=== PATIENT | female | born 1990 | race Two or more races ===

== ENCOUNTER 2019-07-18 02:23 | Emergency (ER) | payer SELFPAY ==
[~2019-07-18] VITALS: Ht 175.3 cm; Wt 65.8 kg
--- NOTE | 2019-07-18 02:39 | NUR ---
ED Nurse Note: Pt c/o 9/10 pain on right side of head since last night, pt is currently vomitting, VSS. PT reports she gave via 2 weeks prior. ERMD at bedside
[2019-07-18 02:40] VITALS: BP 134/90
[2019-07-18] MEDS ORDERED: Ketorolac 30mg Inj IV ONE (03:00)
[2019-07-18] MEDS ORDERED: IBUPROFEN600 MG ORAL (03:53)
[2019-07-18 04:00] VITALS: BP 134/90
--- NOTE | 2019-07-18 04:00 | NUR ---
ER DISCHARGE NOTE: Patient is cleared to be discharged per ERMD, pt is aox4, on room air, with stable vital signs. pt was given dc and prescription instructions, pt was able to verbalize understanding, pt id band and iv site removed without complications. pt is able to ambulate with steady gait. pt took all belongings.
--- NOTE | 2019-07-18 04:18 | Emergency Room Report ---
History of Present Illness General Chief Complaint: Headache Source: Patient Present Illness HPI 28-year-old female presents ED for evaluation. Brought in by EMS from home. Complaining of a headache for the last 2 days. Frontal, throbbing, 8 out of 10 , nonradiating. Denies photophobia or blurry vision. Denies neck stiffness. Denies fevers or chills. States that she took Aleve and Tylenol without relief. Patient had a baby 2 weeks ago via . States she had a similar headache with her last . believes it was relieved with tramadol. No other aggravating relieving factors. Denies any other associated symptoms Allergies: Coded Allergies: ACETAMINOPHEN (Verified Allergy, Unknown, 07/18/19) HYDROCODONE (Verified Allergy, Unknown, 07/18/19) Patient History Past Medical History: none Past Surgical History: none Pertinent Family History: none Social History: Denies: smoking, alcohol use, drug use Now: No Immunizations: UTD Reviewed Nursing Documentation: PMH: Agreed; PSxH: Agreed Nursing Documentation-PMH Past Medical History: No Stated History Review of Systems All Other Systems: negative except mentioned in HPI Physical Exam Vital Signs Date Time Temp Pulse Resp B/P (MAP) Pulse Ox O2 Delivery O2 Flow Rate FiO2 07/18/19 02:25 99.0 98 22 134/90 (105) 100 Room Air Sp02 EP Interpretation: reviewed, normal General Appearance: no apparent distress, alert, GCS 15, non-toxic Head: normocephalic, atraumatic Eyes: bilateral eye normal inspection, bilateral eye PERRL, bilateral eye EOMI , bilateral eye visual acuity ENT: hearing grossly normal, normal pharynx, no angioedema, normal voice Neck: full range of motion, supple, no meningismus, supple/symm/no masses Respiratory: chest non-tender, lungs clear, normal breath sounds, speaking full sentences Cardiovascular #1: regular rate, rhythm, no edema Cardiovascular #2: 2+ carotid (R), 2+ carotid (L), 2+ radial (R), 2+ radial (L) , 2+ dorsalis pedis (R), 2+ dorsalis pedis (L) Gastrointestinal: normal bowel sounds, non tender, soft, non-distended, no guarding, no rebound Rectal: deferred Genitourinary: normal inspection, no CVA tenderness Musculoskeletal: back normal, normal range of motion, gait/station normal, non- tender Neurologic: alert, motor strength/tone normal, lace finisher III-XII nml as tested, oriented x3, sensory intact, responsive, speech normal Psychiatric: judgement/insight normal, memory normal, mood/affect normal, no suicidal/homicidal ideation Reflexes: 3+ bicep (R), 3+ bicep (L), 3+ tricep (R), 3+ tricep (L), 3+ knee (R) , 3+ knee (L) Skin: no rash Lymphatic: no adenopathy Medical Decision Making Diagnostic Impression: Primary Impression: headache ER Course Hospital Course 28 yo F presents with headache. 2 weeks Differential diagnoses include: tension headache, migraine, dehydration Clinical course Patient placed on stretcher. After initial history and physical I ordered toradol, zofran, IVFs. Upon reassessment patient states pain has improved. Patient feels better wishes to go home. No focal neurological deficits. No nuchal rigidity. Will discharge to home. 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 Patient states she has some breast milk in reserve. i. I feel this is a highly complex case requiring extensive working including EKG/Rhythm strip, Xray/CT/US, Blood/urine lab work, repeat exams while in ED, and administration of strong opiates/narcotics for pain control, admission to hospital or close patient follow up. Diagnosis - headache stable and discharged to home. f/up with PMD/OBGYN. return to ED if symptoms recur/worsen. Last Vital Signs Date Time Temp Pulse Resp B/P (MAP) Pulse Ox O2 Delivery O2 Flow Rate FiO2 07/18/19 04:00 99.0 22 134/90 100 Room Air 07/18/19 02:25 98 Status: improved Disposition: HOME, SELF-CARE Condition: Stable Scripts Ibuprofen* (MOTRIN*) 600 Mg Tablet 600 MG ORAL Q8H PRN for For Pain, #30 TAB 0 Refills Prov: Raheem Hauser MD 07/18/19 Referrals: NON PHYSICIAN (PCP) [facility] Patient Instructions: General Headache Without Cause, [id number] Raheem Hauser MD Jul 18, 2019 04:18
== END 2019-07-18 04:45 | disposition home or self-care (01) ==
LOC: EDBD 02:23 → EMR 02:42
DX: R51 Headache (principal); Z88.6 Allergy status to analgesic agent
CPT/HCPCS: 96361; 96374; 96375; 99284; J1885; J2405; J7030

== ENCOUNTER 2019-07-20 01:42 | Emergency (ER) | payer MEDICAID, OTHER ==
[~2019-07-20] VITALS: Ht 170.2 cm; Wt 97.5 kg
[~2019-07-20 01:42] MED LIST: IBUPROFEN600 MG ORAL
--- NOTE | 2019-07-20 02:04 | Emergency Room Report ---
History of Present Illness General Chief Complaint: Headache Source: Patient Present Illness HPI Patient is a 28-year-old female presents after increased headache. She reports having worsening headache over the past 2 to 3 days. She had previous similar symptoms after prior delivery. She denies having an epidural. She not currently breast-feeding. She denies any vomiting or diarrhea. She had delivery approximately 3 weeks ago. Allergies: Coded Allergies: ACETAMINOPHEN (Verified Allergy, Unknown, 07/18/19) HYDROCODONE (Verified Allergy, Unknown, 07/18/19) Uncoded Allergies: VICODEN (Allergy, Unknown, 07/20/19) Patient History Past Medical History: see triage record Reviewed Nursing Documentation: PMH: Agreed; PSxH: Agreed Nursing Documentation-PMH Past Medical History: No Stated History Review of Systems All Other Systems: negative except mentioned in HPI Physical Exam Vital Signs Date Time Temp Pulse Resp B/P (MAP) Pulse Ox O2 Delivery O2 Flow Rate FiO2 07/20/19 01:56 97.0 72 18 138/68 (91) 98 Room Air Sp02 EP Interpretation: reviewed, normal General Appearance: normal inspection, well appearing, no apparent distress, alert, GCS 15 Head: atraumatic ENT: normal ENT inspection, hearing grossly normal, normal voice Neck: normal inspection, full range of motion, supple, no bony tend Respiratory: normal inspection, lungs clear, normal breath sounds, no respiratory distress, no retraction, no wheezing Cardiovascular #1: regular rate, rhythm, no edema Gastrointestinal: normal inspection, normal bowel sounds, non tender, soft, no guarding, no hernia Genitourinary: no CVA tenderness Musculoskeletal: normal inspection, back normal, normal range of motion Neurologic: alert, motor strength/tone normal, territory business manager III-XII nml as tested, responsive, speech normal, normal inspection Psychiatric: normal inspection, judgement/insight normal, mood/affect normal Medical Decision Making Diagnostic Impression: Primary Impression: headache Additional Impression: Urinary tract infection ER Course Patient presented for headache. Differential diagnosis include was not limited to hypertensive crisis, preeclampsia, electrolyte abnormality, anemia among others. Because of complexity of patient's case laboratory tests and imaging studies were ordered. Patient was noted to have recent ER visit for similar symptoms. She was noted to have some continued headache. Patient is given medication for symptomatic treatment as well as IV fluids. She was given IV magnesium. Patient initially had some increased lower extremity reflexes. Patient does not appear to have meningismus. She was given IV antibiotics for UTI. She states she is not currently. Patient was advised to follow up for recheck with her primary care physician. She is to return if worse. Labs Test 07/20/19 02:20 07/20/19 03:20 White Blood Count 9.0 K/UL (4.8-10.8) Red Blood Count 5.69 M/UL (4.20-5.40) Hemoglobin 14.8 G/DL (12.0-16.0) Hematocrit 46.2 % (37.0-47.0) Mean Corpuscular Volume 81 FL (80-99) Mean Corpuscular Hemoglobin 26.1 PG (27.0-31.0) Mean Corpuscular Hemoglobin Concent 32.1 G/DL (32.0-36.0) Red Cell Distribution Width 13.0 % (11.6-14.8) Platelet Count 360 K/UL (150-450) Mean Platelet Volume 7.8 FL (6.5-10.1) Neutrophils (%) (Auto) 66.8 % (45.0-75.0) Lymphocytes (%) (Auto) 24.3 % (20.0-45.0) Monocytes (%) (Auto) 5.3 % (1.0-10.0) Eosinophils (%) (Auto) 2.4 % (0.0-3.0) Basophils (%) (Auto) 1.1 % (0.0-2.0) Sodium Level 139 MMOL/L (136-145) Potassium Level 3.6 MMOL/L (3.5-5.1) Chloride Level 104 MMOL/L (98-107) Carbon Dioxide Level 24 MMOL/L (21-32) Anion Gap 11 mmol/L (5-15) Blood Urea Nitrogen 7 mg/dL (7-18) Creatinine 0.6 MG/DL (0.55-1.30) Estimat Glomerular Filtration Rate > 60 mL/min (>60) Glucose Level 164 MG/DL (74-106) Calcium Level 9.0 MG/DL (8.5-10.1) Total Bilirubin 0.3 MG/DL (0.2-1.0) Aspartate Amino Transf (AST/SGOT) 19 U/L (15-37) Alanine Aminotransferase (ALT/SGPT) 33 U/L (12-78) Alkaline Phosphatase 120 U/L (46-116) Total Protein 7.9 G/DL (6.4-8.2) Albumin 3.4 G/DL (3.4-5.0) Globulin 4.5 g/dL Albumin/Globulin Ratio 0.8 (1.0-2.7) Thyroid Stimulating Hormone (TSH) 3.177 uiU/mL (0.358-3.740) Urine Color Pale yellow Urine Appearance Cloudy Urine pH 8 (4.5-8.0) Urine Specific [place] 1.015 (1.005-1.035) Urine Protein 1+ (NEGATIVE) Urine Glucose (UA) Negative (NEGATIVE) Urine Ketones 1+ (NEGATIVE) Urine Blood 5+ (NEGATIVE) Urine Nitrite Negative (NEGATIVE) Urine Bilirubin Negative (NEGATIVE) Urine Urobilinogen Normal MG/DL (0.0-1.0) Urine Leukocyte Esterase 2+ (NEGATIVE) Urine RBC Tntc /HPF (0 - 2) Urine WBC 30-40 /HPF (0 - 2) Urine Squamous Epithelial Cells Few /LPF (NONE/OCC) Urine Bacteria Moderate /HPF (NONE) Last Vital Signs Date Time Temp Pulse Resp B/P (MAP) Pulse Ox O2 Delivery O2 Flow Rate FiO2 07/20/19 01:56 97.0 72 18 138/68 (91) 98 Room Air Status: improved Disposition: HOME, SELF-CARE Condition: Stable Scripts Acetamin/Butalbital/Caffeine* (FIORICET*) 1 Ea Tab 1 TAB ORAL Q6H, #10 TAB 0 Refills Prov: Trevor Hickman MD 07/20/19 Cephalexin* (KEFLEX*) 500 Mg Capsule 500 MG ORAL EVERY 6 HOURS, #28 CAP Prov: Trevor Hickman MD 07/20/19 Trevor Hickman MD Jul 20, 2019 02:04
[2019-07-20] MEDS ORDERED: DiphenhydrAMINE 50mg/ml Inj IVP ONE (02:15)
[2019-07-20] MEDS ORDERED: Metoclopramide 10mg/2ml Inj IVP ONE (02:15)
[2019-07-20 02:24] VITALS: BP 138/68
--- NOTE | 2019-07-20 02:24 | NUR ---
ER Nurse Note: Pt lars in by wheelchair c/o 05/18 headache since 07/17. Per pt, pt stated she was in ED for the same s/s. Pt stated she did has not changed her daily activity of life but still has the pain. Pt also states she has been nauseous for 3 days as well. and ERMD at pt side; will continue to [facility].
[2019-07-20 02:34] LABS: BASOPHILS % (AUTO) 1.1 % (0.0-2.0); EOSINOPHILS % (AUTO) 2.4 % (0.0-3.0); HEMATOCRIT 46.2 % (37.0-47.0); HEMOGLOBIN 14.8 G/DL (12.0-16.0); LYMPHOCYTES % (AUTO) 24.3 % (20.0-45.0); MEAN CORPUSCULAR VOLUME 81 FL (80-99); MONOCYTES % (AUTO) 5.3 % (1.0-10.0); NEUTROPHILS % (AUTO) 66.8 % (45.0-75.0); PLATELET COUNT 360 K/UL (150-450); RED BLOOD COUNT 5.69 M/UL (4.20-5.40)
[2019-07-20 02:45] LABS: ANION GAP 11 mmol/L (5-15); BLOOD UREA NITROGEN 7 mg/dL (7-18); CARBON DIOXIDE 24 MMOL/L (21-32); CHLORIDE 104 MMOL/L (98-107); CREATININE 0.6 MG/DL (0.55-1.30); POTASSIUM 3.6 MMOL/L (3.5-5.1); SODIUM 139 MMOL/L (136-145)
--- NOTE | 2019-07-20 02:55 | NUR ---
ER Nurse Note: All orders completed per ERMD orders. Pt stable, VSS, no signs of distress. Water given. All safety measures met; will continue to [facility].
[2019-07-20 02:58] LABS: ALANINE AMINOTRANSFERASE 33 U/L (12-78); ALBUMIN 3.4 G/DL (3.4-5.0); ALBUMIN/GLOBULIN RATIO 0.8 (1.0-2.7); ALKALINE PHOSPHATASE 120 U/L (46-116); ASPARTATE AMINO TRANSFERASE 19 U/L (15-37); BILIRUBIN,TOTAL 0.3 MG/DL (0.2-1.0)
[2019-07-20 03:29] LABS: BILIRUBIN, URINE NEGATIVE (NEGATIVE); COLOR,URINE PALE YELLOW; GLUCOSE, URINE (UA) NEGATIVE (NEGATIVE); KETONES,URINE 1+ (NEGATIVE); LEUKOCYTE ESTERASE ,URINE 2+ (NEGATIVE); NITRITE,URINE NEGATIVE (NEGATIVE); PH,URINE 8 (4.5-8.0); PROTEIN,URINE 1+ (NEGATIVE); UROBILINOGEN,URINE NORMAL MG/DL (0.0-1.0)
[2019-07-20 03:52] LABS: APPEARANCE,URINE CLOUDY
[2019-07-20 03:56] VITALS: BP 134/74
[2019-07-20] MEDS ORDERED: cefTRIAXone 1 GM in NS 55 ML IVPB ONE (04:00)
--- NOTE | 2019-07-20 04:01 | NUR ---
ER Nurse Note: Pt asleep but easily arousable, VSS, RA, no signs of distress. Pt stated headache is "getting better" and stated it 5/10. Pt received 2 bags of Mg IV. All safety measures met; will conitnue to juan r.
[2019-07-20] MEDS ORDERED: CEPHALEXIN500 MG ORAL (04:22)
[2019-07-20] MEDS ORDERED: FIORICET1 EA ORAL (04:27)
[2019-07-20 04:50] VITALS: BP 134/74
--- NOTE | 2019-07-20 04:50 | NUR ---
ER Nurse Note: Pt seen, treated, cleared to be discharged per ERMD. Discharge instructions given with repeat verbalization by pt. Encouraged pt follow up with primary care doctor within one week. Pt is aox4, on room air, with stable vital signs, no signs of distress. ID band and IV removed; site clean and bandaged. Pt has wheelchair; took all belongings.
--- NOTE | 2019-07-20 10:57 | Diagnostic Imaging Report ---
Indication: Shortness of breath Technique: XRAY Chest 1v Comparison: None Findings: Limited exam with low lung volumes. Heart appears enlarged and the pulmonary vascularity appears mildly prominent. These findings may be exaggerated by low lung volumes. Possibility of cardiomegaly and mild pulmonary vascular congestion not excluded. Correlate clinically. No definite focal airspace consolidation, pleural effusion or pneumothorax. No acute osseous abnormality. Impression: Limited exam with low lung volumes. Apparent mild cardiomegaly and mild pulmonary vascular prominence may potentially be artifactual and related to low lung volumes. Correlate with clinical findings to assess for mild congestive changes.
== END 2019-07-20 04:50 | disposition home or self-care (01) ==
LOC: EMR 02:10
DX: R51 Headache (principal); Z88.6 Allergy status to analgesic agent; Z88.5 Allergy status to narcotic agent
CPT/HCPCS: 36415; 71045; 80053; 81003; 84443; 85025; 87086; 87181; 96365; 96366; 96368; 96375; J0696; J1200; J2765; J7040; Z7502; 99284

== ENCOUNTER 2019-07-20 12:44 | Emergency (ER) | payer MEDICAID, OTHER ==
[~2019-07-20] VITALS: Ht 167.6 cm; Wt 95.3 kg
[~2019-07-20 12:44] MED LIST changes: +CEPHALEXIN500 MG ORAL; +FIORICET1 EA ORAL
[2019-07-20 12:45] VITALS: BP 140/86
--- NOTE | 2019-07-20 12:45 | NUR ---
ED Nurse Note: Patient brought in by RA from home c/o severe headache. Pt is and her last delivery was on 06/30/19. Denies blurring of vision or fever. No SOB. Breathing even and unlabored. VSS. Family member at bedside.
--- NOTE | 2019-07-20 13:35 | NUR ---
ED Nurse Note: ERPA at bedside.
--- NOTE | 2019-07-20 13:35 | Emergency Room Report ---
History of Present Illness General Chief Complaint: Headache Source: Patient (Aminata Garza) Present Illness HPI 28 YO Female w. return of 03/18 in severity TOUSSAINT. PT. seen here in ED this am and d /c with rx for Fioricet. PT. had onset of TOUSSAINT on 07/18 ( 2 days ago) and was evaluated here in the ED then as well. PT. denies dizziness, N/V, Fevers or chills. She denies neck pain/stiffness. Pt. denies weakness, paresthesias or back pain. Denies loss of gross motor movements, slurred speech, visual changes or auditory changes. Patient reports status post after 3 weeks ago at [facility]. Patient reports that she has been and stopped after receiving pain medication here in the ED at first visit. Pt. reports one previous episode of TOUSSAINT from the child before this most recent . Pt. reports this TOUSSAINT is different in character. She describes right sided throbbing "stabbing" sharp pain. Pt. reports pain so severe she called 911. PT. denies photophobia. States she has only been taking Tylenol and Motrin at home with no relief. PT. states she has yet to last picker Rx from previous ED visit and states "she was too sick to go pick it up". NO significant PMHx. no significant Familial Hx. No CP, SOB, cough, or recent illness. Denies sudden onset, reports progressive quickly after getting into an argument at home. (Aminata Garza) Allergies: Coded Allergies: ACETAMINOPHEN (Verified Allergy, Unknown, 07/18/19) HYDROCODONE (Verified Allergy, Unknown, 07/18/19) Uncoded Allergies: VICODEN (Allergy, Unknown, 07/20/19) Patient History Past Medical History: see triage record Past Surgical History: none Pertinent Family History: none Now: No Reviewed Nursing Documentation: PMH: Agreed; PSxH: Agreed (Aminata Garza) Nursing Documentation-PMH Past Medical History: No History, Except For Hx Cardiac Problems: No - AND JUSTATIONAL DM (Aminata Garza) Review of Systems All Other Systems: negative except mentioned in HPI (Aminata Garza) Physical Exam Vital Signs Date Time Temp Pulse Resp B/P (MAP) Pulse Ox O2 Delivery O2 Flow Rate FiO2 07/20/19 12:31 98.1 99 16 140/86 (104) 99 Room Air Sp02 EP Interpretation: reviewed, normal General Appearance: no apparent distress, alert, GCS 15, non-toxic, lethargic Head: normocephalic, atraumatic Eyes: bilateral eye normal inspection, bilateral eye PERRL, bilateral eye EOMI , bilateral eye other - no photophobia ENT: hearing grossly normal, normal voice Neck: full range of motion, no meningismus, no bony tend Respiratory: lungs clear, normal breath sounds, speaking full sentences Cardiovascular #1: regular rate, rhythm Gastrointestinal: non tender, soft Genitourinary: no CVA tenderness Musculoskeletal: back normal, normal range of motion, gait/station normal - pt. requests assistance due to TOUSSAINT pain being too distracting when walking. Pt. visualized to be weight bearing and normal stride., non-tender Neurologic: alert, motor strength/tone normal, DTRs symmetric, oriented x3, sensory intact, responsive, speech normal Psychiatric: judgement/insight normal, memory normal, other - Pt. with severely flattened affect. Does not provide much detail to questions or regarding symptoms. Often referring to family members to answer for her. Reflexes: 2+ tricep (R) - brachioradialis, 2+ tricep (L) - brachioradialis, 2+ knee (R), 2+ knee (L), 2+ ankle (R), 2+ ankle (L) Skin: no rash, normal color (Aminata Garza) Medical Decision Making PA Attestation Dr. Wisdom Is my supervising Physician whom patient management has been discussed with. (Aminata Gazra) PA Attestation Patient was seen and evaluated by myself as well I do agree with the exam and work-up Patient had a third visit to the ER by 911 Patient reports having sharp shooting pain in the right side of her head Denies any visual changes denies any posterior neck pain patient describes the headache as a migraine And reports that she had similar episode last time after her Patient did have a and did have epidural anesthesia Denies any leg pain or weakness denies any saddle paresthesia Denies any back pain Denies any fevers or chills Patient's MRI is abnormal Does not show any obvious intracranial pathology however there are some scattered findings with differential is concerning and possible but not limited to demyelinating disease (Artemio Lombardi DO) Diagnostic Impression: Primary Impression: Headache Qualified Codes: R51 - Headache Additional Impressions: UTI (urinary tract infection) Qualified Codes: N30.01 - Acute cystitis with hematuria Abnormal finding on imaging ER Course 28 YO Female w. return of 03/18 in severity TOUSSAINT. PT. seen here in ED this am and d /c with rx for Fioricet. PT. had onset of TOUSSAINT on 07/18 ( 2 days ago) and was evaluated here in the ED then as well. PT. denies dizziness, N/V, Fevers or chills. She denies neck pain/stiffness. Pt. denies weakness, paresthesias or back pain. Denies loss of gross motor movements, slurred speech, visual changes or auditory changes. Patient reports status post after 3 weeks ago at [facility]. Patient reports that she has been and stopped after receiving pain medication here in the ED at first visit. Pt. reports one previous episode of TOUSSAINT from the child before this most recent . Pt. reports this TOUSSAINT is different in character. She describes right sided throbbing "stabbing" sharp pain. Pt. reports pain so severe she called 911. PT. denies photophobia. States she has only been taking Tylenol and Motrin at home with no relief. PT. states she has yet to last picker Rx from previous ED visit and states "she was too sick to go pick it up". NO significant PMHx. no significant Familial Hx. No CP, SOB, cough, or recent illness. Denies sudden onset, reports progressive quickly after getting into an argument at home. . Ddx considered but are not limited to migraine, SAH, Pseudomotor Cerebri, Mass lesion, Cluster TOUSSAINT, Tension TOUSSAINT, Post lumbar puncture TOUSSAINT, meningitis, UTI. Vital signs: are WNL, pt. is afebrile H&PE are most consistent with persistent recurring headache without focal neurological deficits, no meningeal signs, no trauma or fall. This pt. is highly complex and requires laboratory testing, IV interventions and brain imaging. ORDERS: -CBC: WNL -CMP: NWL - UA: mild infection noted, improved from UA results obtained this am. - MRI Brain: "Scattered nonspecific foci of patrizia-ventricular and subcortical T2 signal hyperintensity. Considerations include, but not limited to, chronic ischemic microvascular changes or demyelinating disease such as multiple sclerosis. Neurology follow-up recommended." Per official radiology report- Please see report for specific details. ED INTERVENTIONS: -1 Liter NS Bolus - Pt. Declines Imitrex -IM Toradol -Pt. offered Fioricet PTD, She also is declining. -I do not identify an emergent condition at this time. With current presentation , pt. is stable for close outpatient follow up and conservative treatment. D/ w pt. to return promptly to ED with worsening or new symptoms.- Pt. verbalizes' understanding and agreement with proposed treatment plan. D/w pt. abnormal MRI findings and required Neurology follow up. Pt. is given a printed copy of her MRI results. DISCHARGE: At this time pt. is stable for d/c to home. Will provide printed patient care instructions, and any necessary prescriptions. Care plan and follow up instructions have been discussed with the patient prior to discharge. Labs Test 07/20/19 13:59 07/20/19 14:14 White Blood Count 9.5 K/UL (4.8-10.8) Red Blood Count 5.78 M/UL (4.20-5.40) Hemoglobin 15.2 G/DL (12.0-16.0) Hematocrit 47.8 % (37.0-47.0) Mean Corpuscular Volume 83 FL (80-99) Mean Corpuscular Hemoglobin 26.2 PG (27.0-31.0) Mean Corpuscular Hemoglobin Concent 31.7 G/DL (32.0-36.0) Red Cell Distribution Width 13.0 % (11.6-14.8) Platelet Count 393 K/UL (150-450) Mean Platelet Volume 8.0 FL (6.5-10.1) Neutrophils (%) (Auto) 79.8 % (45.0-75.0) Lymphocytes (%) (Auto) 14.6 % (20.0-45.0) Monocytes (%) (Auto) 4.5 % (1.0-10.0) Eosinophils (%) (Auto) 0.3 % (0.0-3.0) Basophils (%) (Auto) 0.8 % (0.0-2.0) Sodium Level 140 MMOL/L (136-145) Potassium Level 3.6 MMOL/L (3.5-5.1) Chloride Level 103 MMOL/L (98-107) Carbon Dioxide Level 26 MMOL/L (21-32) Anion Gap 11 mmol/L (5-15) Blood Urea Nitrogen 5 mg/dL (7-18) Creatinine 0.7 MG/DL (0.55-1.30) Estimat Glomerular Filtration Rate > 60 mL/min (>60) Glucose Level 132 MG/DL (74-106) Calcium Level 9.1 MG/DL (8.5-10.1) Total Bilirubin 0.4 MG/DL (0.2-1.0) Aspartate Amino Transf (AST/SGOT) 19 U/L (15-37) Alanine Aminotransferase (ALT/SGPT) 35 U/L (12-78) Alkaline Phosphatase 126 U/L (46-116) Total Protein 8.5 G/DL (6.4-8.2) Albumin 3.7 G/DL (3.4-5.0) Globulin 4.8 g/dL Albumin/Globulin Ratio 0.8 (1.0-2.7) Urine Color Pale yellow Urine Appearance Clear Urine pH 6 (4.5-8.0) Urine Specific [place] 1.015 (1.005-1.035) Urine Protein 1+ (NEGATIVE) Urine Glucose (UA) Negative (NEGATIVE) Urine Ketones 4+ (NEGATIVE) Urine Blood 5+ (NEGATIVE) Urine Nitrite Negative (NEGATIVE) Urine Bilirubin Negative (NEGATIVE) Urine Urobilinogen Normal MG/DL (0.0-1.0) Urine Leukocyte Esterase 1+ (NEGATIVE) Urine RBC 20-30 /HPF (0 - 2) Urine WBC 5-10 /HPF (0 - 2) Urine Squamous Epithelial Cells Occasional /LPF Urine Bacteria Few /HPF (NONE) Urine HCG, Qualitative Negative (NEGATIVE) (Aminata Garza) CT/MRI/US Diagnostic Results CT/MRI/US Diagnostic Results : Imaging Test Ordered: MRI BRAIN Impression Pt. declines Contrast and reports Contrast allergy. "Scattered nonspecific foci of patrizia-ventricular and subcortical T2 signal hyperintensity. Considerations include, but not limited to, chronic ischemic microvascular changes or demyelinating disease such as multiple sclerosis. Neurology follow-up recommended." Per official radiology report- Please see report for specific details. (Aminata Garza) Last Vital Signs Date Time Temp Pulse Resp B/P (MAP) Pulse Ox O2 Delivery O2 Flow Rate FiO2 07/20/19 12:45 98.1 99 16 140/86 99 Room Air Status: improved (Aminata Garza) Disposition: HOME, SELF-CARE Condition: Stable Referrals: [facility] Patient Instructions: General Headache Without Cause, Urinary Tract Infection, [id number] Additional Instructions: Take previously prescribed ( Fioricet- for headache and Keflex-for UTI ) medications as directed. Follow up with a Primary Care Provider in 3-5 days For a referral to have NEUROLOGIST Evaluation, even if your symptoms have resolved. Please bring the copy of your MRI results with you. --Please review list of primary care clinics, if you do not already have a primary care provider Return sooner to ED if new symptoms occur, or current symptoms become worse. - Please note that this Emergency Department Report was dictated using [employer]erm[employer]chinese teacher technology software, occasionally this can lead to erroneous entry secondary to interpretation by the dictation equipment. Aminata Garza Jul 20, 2019 13:35 Artemio Lombardi DO Jul 20, 2019 17:07
[2019-07-20] MEDS ORDERED: Gadavist 7.5mMol/7.5ml vial IV PRN (13:45)
[2019-07-20 14:13] LABS: BASOPHILS % (AUTO) 0.8 % (0.0-2.0); EOSINOPHILS % (AUTO) 0.3 % (0.0-3.0); HEMATOCRIT 47.8 % (37.0-47.0); HEMOGLOBIN 15.2 G/DL (12.0-16.0); LYMPHOCYTES % (AUTO) 14.6 % (20.0-45.0); MEAN CORPUSCULAR VOLUME 83 FL (80-99); MONOCYTES % (AUTO) 4.5 % (1.0-10.0); NEUTROPHILS % (AUTO) 79.8 % (45.0-75.0); PLATELET COUNT 393 K/UL (150-450); RED BLOOD COUNT 5.78 M/UL (4.20-5.40); WHITE BLOOD COUNT 9.5 K/UL (4.8-10.8)
--- NOTE | 2019-07-20 14:20 | NUR ---
ED Nurse Note: Pt was taken for MRI.
[2019-07-20 14:27] LABS: ANION GAP 11 mmol/L (5-15); BLOOD UREA NITROGEN 5 mg/dL (7-18); CALCIUM 9.1 MG/DL (8.5-10.1); CARBON DIOXIDE 26 MMOL/L (21-32); CHLORIDE 103 MMOL/L (98-107); CREATININE 0.7 MG/DL (0.55-1.30); POTASSIUM 3.6 MMOL/L (3.5-5.1); SODIUM 140 MMOL/L (136-145)
[2019-07-20 14:32] LABS: ALANINE AMINOTRANSFERASE 35 U/L (12-78); ALBUMIN 3.7 G/DL (3.4-5.0); ALBUMIN/GLOBULIN RATIO 0.8 (1.0-2.7); ALKALINE PHOSPHATASE 126 U/L (46-116); ASPARTATE AMINO TRANSFERASE 19 U/L (15-37); BILIRUBIN,TOTAL 0.4 MG/DL (0.2-1.0)
[2019-07-20 15:09] LABS: APPEARANCE,URINE CLEAR; BILIRUBIN, URINE NEGATIVE (NEGATIVE); COLOR,URINE PALE YELLOW; GLUCOSE, URINE (UA) NEGATIVE (NEGATIVE); KETONES,URINE 4+ (NEGATIVE); LEUKOCYTE ESTERASE ,URINE 1+ (NEGATIVE); NITRITE,URINE NEGATIVE (NEGATIVE); PH,URINE 6 (4.5-8.0); PROTEIN,URINE 1+ (NEGATIVE); UROBILINOGEN,URINE NORMAL MG/DL (0.0-1.0)
--- NOTE | 2019-07-20 15:10 | NUR ---
ED Nurse Note: Pt came back from MRI. Not in any distress.
[2019-07-20] MEDS ORDERED: SUMAtriptan 50mg tab ORAL ONE (15:15)
--- NOTE | 2019-07-20 15:18 | NUR ---
ED Nurse Note: Patient refused Imitrex. ERPA notified. Medication was returned to [facility].
[2019-07-20] MEDS ORDERED: Cephalexin 500mg cap ORAL ONE (15:30)
[2019-07-20] MEDS ORDERED: Ketorolac 30mg Inj IV ONE (15:30)
[2019-07-20 15:48] VITALS: BP 135/74
[2019-07-20] MEDS ORDERED: DiphenhydrAMINE 50mg/ml Inj IVP ONE (17:15)
[2019-07-20 18:13] VITALS: BP 131/82
--- NOTE | 2019-07-20 18:13 | NUR ---
ED Nurse Note: Pt cleared by ERMD for discharge. DC instructions was given and explained to pt and verbalized understanding of teachings. All medical deviecs such as ID band and IV line removed. Pt is AAO x4, ambulatory and left with all personal belongings. Accompanied by family members.
--- NOTE | 2019-07-21 08:55 | Diagnostic Imaging Report ---
Indication: Headache Technique: MRI the brain performed utilizing T1 sagittal, T2 axial, T1 FLAIR axial, T2 FLAIR axial, T2*GRE and diffusion axial images without gadolinium. Comparison: None Findings: No diffusion abnormalities are seen on diffusion weighted imaging. No abnormal signal dropout on GRE to suggest acute intracranial hemorrhage. There are multiple scattered nonspecific foci of T2 FLAIR signal hyperintensity in the periventricular and subcortical white matter without associated mass effect or surrounding edema. The sulci, ventricles and cisterns are within normal limits.. There is no shift of midline structures. No space-occupying lesion. No significant extra-axial collections of fluid or blood are demonstrated. The sella and parasellar regions are unremarkable. Expected signal flow voids are seen of the vessels of the skull base. Visualized mastoid air cells and paranasal sinuses are unremarkable. No focal bony calvarium or soft tissue lesions are seen. IMPRESSION: No evidence of acute infarct, acute intracranial hemorrhage, midline shift or abnormal mass effect. Scattered nonspecific foci of periventricular and subcortical T2 signal hyperintensity. Considerations include, but not limited to, chronic ischemic microvascular changes or demyelinating disease (for example multiple sclerosis). Neurology follow-up recommended.
== END 2019-07-20 18:13 | disposition home or self-care (01) ==
LOC: EDBD 12:44 → EMR 13:28
DX: R51 Headache (principal); N30.01 Acute cystitis with hematuria; R93.89 Abnormal findings on diagnostic imaging of other specified body structures; Z88.6 Allergy status to analgesic agent; Z88.5 Allergy status to narcotic agent
CPT/HCPCS: 36415; 70551; 80053; 81003; 81025; 85025; 96361; 96374; 96375; J7030; Z7502; 99284